=== PATIENT | female | born 1995 | race African-American/Black ===

== ENCOUNTER 2018-11-25 04:48 | Emergency (ER) | payer OTHER ==
[2018-11-25] MEDS ORDERED: PEPCID IV ONE (06:03)
[2018-11-25] MEDS ORDERED: SOLU-Medrol ONE (06:03)
[2018-11-25] MEDS ORDERED: NACL 0.9% 1000 ML 1,000 ML ONE (06:03)
[2018-11-25] MEDS ORDERED: BENADRYL ONE (06:04)
[2018-11-25] MEDS ORDERED: BENADRYL IV ONE ×2 (06:18→07:18)
[2018-11-25] MEDS ORDERED: SOLU-Medrol IV ONE ×2 (06:19→07:18)
--- NOTE | 2018-11-25 06:58 | XRay Report ---
PROCEDURE: XR NECK SOFT TISSUE TECHNIQUE: AP and lateral views of the neck HISTORY: foreign body sensation after eating food COMPARISONS: None FINDINGS: Patent tracheal air column. No hypopharyngeal ballooning identified. No radiodense foreign body. Prev ertebral soft tissues are within normal limits. Unremarkable lung apices. IMPRESSION: No radiodense foreign body. Consider CT with contrast for more sensitive and specific evaluation of t he airway and upper esophagus as warranted. This document is electronically signed by Harish Kessler MD., November 25 2018 06:56:05 AM ET
--- NOTE | 2018-11-25 07:22 | Emergency Department Report ---
ED ENT HPI - General Chief complaint: Skin/Abscess/Foreign Body Stated complaint: FOOD STUCK IN THROAT Time Seen by Provider: 11/25/18 07:11 Source: patient, old records reviewed (no previous [facility] record) Mode of arrival: Ambulatory Limitations: Language Barrier - History of Present Illness Initial comments: 23 year old female with no significant past medical history and no previous allergies presents to the hospital complaining of left sided throat discomfort as tightness and chest tightness that started 2-3 hours after eating dinner. Patient ate a noodle, meat, and vegetable dish around 11 PM. Patient states that while laying down to sleep when she developed shortness of breath that was worse while lying supine, chest tightness, and foreign body sensation in the left side of her throat, and chest tightness. Nurse reports to me that patient had stridor. Patient received Solu-Medrol 60 mg and Benadryl 12.5 mg IV prior to my evaluation with improvement in respiratory symptoms and decrease in stridor. Patient denies any new exposures and has had this dish in the past. She denies any swallowing difficulties pre-or post ED treatment. No rash or pruritus reported. - Related Data Previous Rx's Medication Instructions Recorded Last Taken Type EPINEPHrine [Epipen] 0.3 mg IJ PRN PRN #1 auto.injct 11/25/18 Unknown Rx diphenhydrAMINE [Benadryl CAP] 25 mg PO Q6HR PRN #20 capsule 11/25/18 Unknown Rx predniSONE [Deltasone] 40 mg PO QDAY 5 Days tab 11/25/18 Unknown Rx Allergies Allergy/AdvReac Type Severity Reaction Status Date / Time No Known Allergies Allergy Verified 11/25/18 06:20 ED Dental HPI - General Chief complaint: Skin/Abscess/Foreign Body Stated complaint: FOOD STUCK IN THROAT Time Seen by Provider: 11/25/18 07:11 Source: patient, old records reviewed Mode of arrival: Ambulatory Limitations: Language Barrier - Related Data Previous Rx's Medication Instructions Recorded Last Taken Type EPINEPHrine [Epipen] 0.3 mg IJ PRN PRN #1 auto.injct 11/25/18 Unknown Rx diphenhydrAMINE [Benadryl CAP] 25 mg PO Q6HR PRN #20 capsule 11/25/18 Unknown Rx predniSONE [Deltasone] 40 mg PO QDAY 5 Days tab 11/25/18 Unknown Rx Allergies Allergy/AdvReac Type Severity Reaction Status Date / Time No Known Allergies Allergy Verified 11/25/18 06:20 ED Review of Systems ROS: Stated complaint: FOOD STUCK IN THROAT Other details as noted in HPI Comment: All other systems reviewed and negative ED Past Medical Hx - Past Medical History Previous Medical History?: No - Surgical History Past Surgical History?: No - Social History Smoking Status: Never Smoker - Medications Home Medications: Home Medications Medication Instructions Recorded Confirmed Last Taken Type EPINEPHrine [Epipen] 0.3 mg IJ PRN PRN #1 auto.injct 11/25/18 Unknown Rx diphenhydrAMINE [Benadryl CAP] 25 mg PO Q6HR PRN #20 capsule 11/25/18 Unknown Rx predniSONE [Deltasone] 40 mg PO QDAY 5 Days tab 11/25/18 Unknown Rx ED Physical Exam - General Limitations: Language Barrier - Other Other exam information: General: No limitations, patient is alert in no acute distress Head exam: Atraumatic, normocephalic Eyes exam: Normal appearance ENT: Moist mucous membrane, normal oropharynx, minimum respiratory stridor, no posterior pharyngeal edema Neck exam: Normal inspection, full range of motion, no meningismus nontender Respiratory exam: Clear to auscultation bilateral, no wheezes, rales, crackles Cardiovascular: Normal rate and rhythm, normal heart sounds Abdomen: Soft, nondistended, and nontender, with normal bowel sounds, no rebound, or guarding Extremity: Full range of motion normal inspection no deformity Back: Normal Inspection, full range of motion, no tenderness Neurologic: Alert, oriented x3, cranial nerves intact, no motor or sensory deficit Psychiatric: normal affect, normal mood Skin: Warm, dry, intact ED Course Vital Signs 11/25/18 11/25/18 05:04 08:24 Temperature 97.9 F 98.4 F Pulse Rate 81 79 Respiratory 16 13 Rate Blood Pressure 114/75 Blood Pressure 107/71 [Left] O2 Sat by Pulse 99 100 Oximetry ED Medical Decision Making - Radiology Data Radiology results: report reviewed PROCEDURE: XR NECK SOFT TISSUE TECHNIQUE: AP and lateral views of the neck HISTORY: foreign body sensation after eating food COMPARISONS: None FINDINGS: Patent tracheal air column. No hypopharyngeal ballooning identified. No radiodense foreign body. Prevertebral soft tissues are within normal limits. Unremarkable lung apices. IMPRESSION: No radiodense foreign body. Consider CT with contrast for more sensitive and specific evaluation of the airway and upper esophagus as warranted. - Medical Decision Making Patient had improvement in symptoms after treatment for allergic reaction including Benadryl and Solu-Medrol. Patient no longer feels like there is something stuck in her throat. She no longer has any stridor and there isn't any wheezing. Suspect that patient had allergy as opposed to a foreign body. She is swallowing liquids without difficulty. She'll be discharged home with medications for allergic reaction - Differential Diagnosis foreign body, allergic reaction Critical Care Time: No Critical care attestation.: If time is entered above; I have spent that time in minutes in the direct care of this critically ill patient, excluding procedure time. ED Disposition Clinical Impression: Allergic reaction Disposition: TO HOME OR SELFCARE Is pt being admited?: No Does the pt Need Aspirin: No Condition: Stable Instructions: Food Allergy (ED) Additional Instructions: Take the medication as prescribed. Follow up with your doctor or the clinic/doctor provided. Return if symptoms worsen as indicated by your discharge instructions Prescriptions: diphenhydrAMINE [Benadryl CAP] 25 mg PO Q6HR PRN #20 capsule PRN Reason: Allergic Reaction predniSONE [Deltasone] 40 mg PO QDAY 5 Days tab EPINEPHrine [Epipen] 0.3 mg IJ PRN PRN #1 auto.injct PRN Reason: Anaphylaxis Referrals: [facility] MD CARMEN [Primary Care Provider] - 3-5 Days (Primary care clinic) RAS VICENTE MD [Staff Physician] - 3-5 Days (Inspector Cold Working) ALVARADO FREEMAN MD [Referring] - 3-5 Days (agile qa tester ) CELESTE TEIXEIRA MD [Referring] - 3-5 Days (agile qa tester ) Time of Disposition: 08:49
[2018-11-25 08:25] VITALS: BP 107/71
== END 2018-11-25 08:59 | disposition home or self-care (01) ==
LOC: ED 04:48
DX: T78.40XA Allergy, unspecified, initial encounter (principal); X58.XXXA Exposure to other specified factors, initial encounter
CPT/HCPCS: 70360; J1200; J2920; J2930; J7030; 96374; 96375; 96376

== ENCOUNTER 2019-11-17 01:59 | Emergency (ER) | payer OTHER | END 2019-11-17 03:00 | disposition left against medical advice (07) | LOC: ED 01:59 | DX: R10.30 Lower abdominal pain, unspecified (principal); Z53.21 Procedure and treatment not carried out due to patient leaving prior to being seen by health care provider ==

== ENCOUNTER 2021-11-21 21:22 | Outpatient (CLI) | payer OTHER ==
[2021-11-21 21:45] VITALS: BP 100/68
[2021-11-21] MEDS ORDERED: SODIUM CHLORIDE 0.9% 1000 ML 1,000 ML IV ONE (22:38)
[2021-11-21 23:22] LABS: Basophils % (Auto) 0.1 % (0.0-1.8); Eosinophils # (Auto) 0.1 K/mm3 (0.0-0.4); Eosinophils % (Auto) 1.4 % (0.0-4.3); Hematocrit 35.9 % (30.3-42.9); Hemoglobin 12.1 gm/dl (10.1-14.3); Lymphocytes # (Auto) 2.1 K/mm3 (1.2-5.4); Mean Corpuscular HGB Conc 34 % (30-34); Mean Corpuscular Volume 93 fl (79-97); Monocytes # (Auto) 0.9 K/mm3 (0.0-0.8); Monocytes % (Auto) 9.2 % (0.0-7.3); Platelet Count 273 K/mm3 (140-440); Red Blood Count 3.87 M/mm3 (3.65-5.03); Red Cell Distribution Width 13.6 % (13.2-15.2)
== END 2021-11-22 00:13 | disposition home or self-care (01) ==
LOC: TRG 21:22 → APU 21:24 → TRG 11-22 00:13
PROVIDERS: ATTEND Obstetrics & Gynecology Gynecology
DX: Z34.92 Encounter for supervision of normal pregnancy, unspecified, second trimester (principal); Z3A.25 25 weeks gestation of pregnancy
CPT/HCPCS: 36415; 85025